=== PATIENT | female | born 1965 | race Caucasian/White ===

== ENCOUNTER 2017-01-29 08:26 | Emergency (ER) | payer MEDICAID ==
[~2017-01-29] VITALS: Ht 152.4 cm; Wt 66.7 kg
[2017-01-29] MEDS ORDERED: CIPRO500 MG PO (09:06)
[2017-01-29] MEDS ORDERED: COREG25 MG PO (09:06)
[2017-01-29] MEDS ORDERED: PERCOCET 325-51 TAB PO (09:07)
[2017-01-29] MEDS ORDERED: ZOLOFT50 MG PO (09:07)
[2017-01-29] MEDS ORDERED: LASIX40 MG PO (09:07)
[2017-01-29] MEDS ORDERED: LEVEMIR FL100 UNIT/1 SUBCUT (09:07)
[2017-01-29] MEDS ORDERED: PRILOSEC20 MG PO (09:08)
[2017-01-29] MEDS ORDERED: LIPITOR80 MG PO (09:08)
[2017-01-29] MEDS ORDERED: NORVASC10 MG PO (09:08)
[2017-01-29] MEDS ORDERED: PLAVIX75 MG PO (09:09)
[2017-01-29] MEDS ORDERED: CARDURA2 MG PO (09:09)
== END 2017-01-29 10:20 | disposition short-term general hospital (02) ==
LOC: ER 08:26
DX: T87.44 Infection of amputation stump, left lower extremity (principal); L03.116 Cellulitis of left lower limb; I11.0 Hypertensive heart disease with heart failure; I50.9 Heart failure, unspecified; F17.210 Nicotine dependence, cigarettes, uncomplicated; E11.9 Type 2 diabetes mellitus without complications; E78.5 Hyperlipidemia, unspecified; I25.10 Atherosclerotic heart disease of native coronary artery without angina pectoris; Z90.49 Acquired absence of other specified parts of digestive tract; Z90.710 Acquired absence of both cervix and uterus; Z95.1 Presence of aortocoronary bypass graft; Z88.8 Allergy status to other drugs, medicaments and biological substances